=== PATIENT | male | born 1965 | race Caucasian/White ===

== ENCOUNTER → 2023-08-11 10:14 | Outpatient (CLI) | payer OTHER, SELFPAY ==
--- NOTE | 2023-08-11 10:21 | DI.RAD.S_ITS ---
PROCEDURE: XR CERVICAL SPINE 4V OR 5V INDICATIONS: neck pain TECHNIQUE: 5 views of the cervical spine acquired. COMPARISON: None. FINDINGS: Bones: Lateral view extends from the skull base to C7. No acute fracture or traumatic subluxation. Slight reversal of the normal cervical lordosis centered at C4. Anterolisthesis of C3 on C4 of approximately 2 mm. Retrolisthesis of C4 on C5 of approximately 2 mm. Moderate to severe multilevel degenerative changes with anterior osteophytosis, disc height loss and facet/uncal hypertrophy. Oblique views demonstrate moderate osseous neural foraminal narrowing at C3-C4 bilaterally. Soft tissues: No prevertebral soft tissue swelling. Visualized lung apices are clear. IMPRESSION: 1. No acute fracture or traumatic subluxation. 2. Moderate to severe multilevel degenerative changes with moderate bilateral osseous neural foraminal narrowing at C3-C4. If symptoms persist, consider MRI for further evaluation. Dictated by: Matty Santo M.D. on 08/11/2023 at 15:27 Approved by: Matty Santo M.D. on 08/11/2023 at 15:29
== END ==
PROVIDERS: Referring Provider Family Medicine; Visit Provider Family Medicine
DX: M47.812 Spondylosis without myelopathy or radiculopathy, cervical region (principal); M48.02 Spinal stenosis, cervical region; M54.2 Cervicalgia; G89.29 Other chronic pain
CPT/HCPCS: 72050